=== PATIENT | male | born 1960 | race Caucasian/White ===

== ENCOUNTER 2017-06-01 06:47 | Day surgery (SDC) | payer BC ==
[~2017-06-01] VITALS: Ht 170.2 cm; Wt 77.5 kg
[2017-06-01 08:38] VITALS: Ht 170.2 cm; Wt 77.5 kg
[2017-06-01] MEDS ORDERED: PROPOFOL 20 ML ONE (08:50)
[2017-06-01 09:08] VITALS: BP 140/82; PULSE 64; RESP 20
[2017-06-01 09:48] VITALS: BP 113/75; PULSE 49; RESP 18
--- NOTE | 2017-06-05 06:11 | GILP ---
DATE OF PROCEDURE: PROCEDURE PERFORMED: Colonoscopy. SURGEON: Eugenio Latham MD. PREOPERATIVE DIAGNOSIS: Screening colonoscopy. POSTOPERATIVE DIAGNOSES: 1. Colonoscopy all the way to the cecum. 2. Diverticulosis of the colon. 3. Internal hemorrhoids. 4. No colon neoplasm was identified. INDICATION: Mr. Antwon Bartlett is a 55-year-old male patient who is scheduled for screening colonoscopy. The procedure and possible complications were well explained to the patient. The patient understood and consented to the procedure. Under influence of anesthesia, the colonoscope was carefully introduced in the rectum and under direct vision was advanced all the way to the cecum. FINDINGS: The patient had diverticulosis of the colon. He also had internal hemorrhoids. No colon neoplasm was identified. He tolerated the procedure very well. There was no complication from the procedure. At the end of procedure. He was awake, with stable vital signs. He was discharged home in the care of his family. IMPRESSION: 1. Diverticulosis of the colon. 2. Internal hemorrhoids. 3. No colon neoplasm was identified. PLAN: Next screening colonoscopy in 10 years. Dictated By: MD JAYSHREE Ellis/marco antonio/sonia /Document#: [id number] CC: Eugenio Latham MD;*EndCC*
== END 2017-06-01 13:31 | disposition home or self-care (01) ==
LOC: GIL 06:47
PROVIDERS: ATTEND Internal Medicine Gastroenterology
DX: Z12.11 Encounter for screening for malignant neoplasm of colon (principal); K57.90 Diverticulosis of intestine, part unspecified, without perforation or abscess without bleeding; K64.8 Other hemorrhoids
CPT/HCPCS: 45378; Z7610

== ENCOUNTER 2019-03-10 06:25 | Day surgery (SDC) | payer BC ==
[2019-03-10] VITALS (14 sets, daily range): BP systolic 70–134; BP diastolic 49–77; PULSE 48–74; RESP 12–23; Ht 167.6 cm; Wt 77.8 kg
[~2019-03-10] VITALS: Ht 167.6 cm; Wt 77.8 kg
[2019-03-10] MEDS ORDERED: SOD CHLORIDE 0.9% 1,000 ML IV SCH (07:00)
[2019-03-10] MEDS ORDERED: CEFAZOLIN 2 GM/50 ML (PMX) 50 ML IVPB ONE (07:00)
--- NOTE | 2019-03-10 08:11 | PREAC ---
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 not on B-Elio Reported Medications [None] No Conflict Check 06/01/17 Current Medications Sodium Chloride 1,000 ml @ 75 mls/hr [id number] IV ; Start 03/10/19 at 07:00; Stop 03/10/19 at 20:19 Meds reviewed: Yes Allergies Coded Allergies: No Known Drug Allergy (Verified Allergy, Mild, 06/01/17) Allergies Reviewed: Yes Labs/Studies Labs Reviewed: Reviewed by anesthesiologist test: N/A Pre-procedure Exam Airway: Adequate mouth opening, Adequate thyromental dist Mallampati: Mallampati II Teeth: Normal Lung: Normal Heart: Normal ASA Physical Status ASA physical status: 2 Emergency: None Planned Anesthetic General/MAC: ETT Nerve block: TAP (bilateral) Planned Pain Management Single shot nerve block, Parenteral pain med Pre-operative Attestations Prior to commencing anesthesia and surgery, the patient was re-evaluated, there was verification of: *The patient's identity *The results of appropriate recent lab work and preoperative vital signs *The above evaluation not changing prior to induction *Anesthetic plan, risk benefits, alternative and complications discussed with patient/family; questions answered; patient/family understands, accepts and wishes to proceed. MIRANDA RESTREPO MD Mar 10, 2019 08:11
[2019-03-10] MEDS ORDERED: ATOR10TA65 PO (08:12)
[2019-03-10] MEDS ORDERED: ROCURONIUM 50 MG INJ ONE (08:22)
[2019-03-10] MEDS ORDERED: FENTAnyl 50 MCG/ML VIAL ONE (08:22)
[2019-03-10] MEDS ORDERED: ROPIVACAINE 0.2% 20 ML VIAL ONE (08:22)
[2019-03-10] MEDS ORDERED: MIDAZOLAM 1 MG/ML 2 ML INJ ONE (08:22)
[2019-03-10] MEDS ORDERED: PROPOFOL 20 ML ONE (08:22)
[2019-03-10] MEDS ORDERED: HYDROmorphONE 1 MG/5 ML IV SYRINGE IV PRN ×3 (08:30)
[2019-03-10] MEDS ORDERED: EPHEDrine SULFATE 50 MG/5 ML SYG IV PRN (08:30)
[2019-03-10] MEDS ORDERED: OXYCODONE/ACETAMINOPHEN (5/325) TAB PO PRN (08:30)
[2019-03-10] MEDS ORDERED: hydrALAzine 20 MG INJ IV PRN (08:30)
[2019-03-10] MEDS ORDERED: FENTAnyl 50 MCG/ML VIAL IV PRN ×3 (08:30)
[2019-03-10] MEDS ORDERED: ONDANSETRON 4 MG INJ IV PRN (08:30)
[2019-03-10] MEDS ORDERED: MEPERIDINE 25 MG INJ IV PRN (08:30)
[2019-03-10] MEDS ORDERED: METOCLOPRAMIDE 10 MG INJ IV PRN (08:30)
[2019-03-10] MEDS ORDERED: LABETALOL HCL 20MG INJ IV PRN (08:30)
[2019-03-10] MEDS ORDERED: DIPHENHYDRAMINE 50 MG INJ IV PRN (08:30)
[2019-03-10] MEDS ORDERED: CEFAZOLIN 1 GM INJ ONE (09:10)
[2019-03-10] MEDS ORDERED: PHENYLephrine (100 MCG/ML) 10ML SYG ONE (09:22)
[2019-03-10] MEDS ORDERED: DEXAMETHASONE 4 MG/ML 5 ML INJ ONE (09:28)
[2019-03-10] MEDS ORDERED: METOCLOPRAMIDE 10 MG INJ ONE (09:28)
[2019-03-10] MEDS ORDERED: KETOROLAC 30 MG INJ ONE (09:28)
[2019-03-10] MEDS ORDERED: SUGAMMADEX SODIUM 200 MG/2 ML VIAL IV ONE (09:28)
[2019-03-10] MEDS ORDERED: ONDANSETRON 4 MG INJ ONE (09:28)
--- NOTE | 2019-03-10 09:46 | OPR ---
Date/Time of Note Date/Time of Note DATE: 03/10/19 TIME: 09:44 Operative Report Procedure Date: Mar 10, 2019 Preoperative Diagnosis symptomatic gallstones Postoperative Diagnosis same Operation/Procedure Performed laparoscopic cholecystectomy Surgeon see signature line Subsurface Augmentee Operator none Anesthesia Type: general Estimated Blood Loss: 0 - 10 ml's Transfusion none Specimen gallbladder Grafts/Implants none Complications none Pt Condition Post Procedure: stable Indications This is a 58-year-old male with some tender gallstones. He requires surgical excision of his gallbladder. Risks alternatives benefits and personally discussed the patient. Patient expressed understanding and consents to the operation. Procedure Description Patient is taken to the OR and prepped and draped in usual sterile fashion. Surgical time was performed. IV antibiotics were given. Infraumbilical transverse incision was made with a 15 blade. Dissection with cautery was carried onto the fascia. The fascia was grasped with Adi's and divided with curved Sinclair scissors. Miller trocar was introduced. Pneumoperitoneum was established. Midepigastric 12 mm optical trochars placed under direct visualization. Right upper quadrant upper flank 5 mm optical trochars were placed in direct position. Upon initial inspection there are some adhesions to gallbladder which were taken down bluntly. The gallbladder is grasped in the fu ndus and retracted and lateral cephalad direction. [place] graspers were used to dissect out the cystic duct and cystic artery. The critical view was established. The cystic duct is divided with 3 clips proximal to distal and the divisions performed laparoscopic scissors. Cystic artery was divided 3 clips proximally clipped distally divisions performed laparoscopic scissors. The gallbladder was taken of the gallbladder bed. Good hemostasis times. The gallbladder is retrieved Endo Catch bag. Ports removed under direct physician. 0 Vicryl [id number] stitches placed into the infraumbilical fascial incision. Skin is closed and skin shayy. A tap block was provided by the anesthesiologist. Dry dressings were applied. Alexis KUMAR Mar 10, 2019 09:46
--- NOTE | 2019-03-10 09:50 | PAC ---
Date/Time of Note Date/Time of Note DATE: 03/10/19 TIME: 09:49 Post-Anesthesia Notes Post-Anesthesia Note Last documented vital signs Vital Signs Date Temp Pulse Resp B/P (MAP) Pulse Ox O2 O2 Flow FiO2 Time Delivery Rate 03/10/19 98.3 56 16 121/63 100 Face Mask 8 L 09:46 (82) Activity: WNL Respiratory function: WNL Cardiovascular function: WNL Mental status: Baseline Pain reasonably controlled: Yes Hydration appropriate: Yes Nausea/Vomiting absent: Yes MIRANDA RESTREPO MD Mar 10, 2019 09:49
[2019-03-10] MEDS ORDERED: HYDROCODONE/APAP (5/325) TAB PO ONE (10:00)
[2019-03-10] MEDS ORDERED: KETOROLAC 30 MG INJ IV STA (12:11)
== END 2019-03-10 13:15 | disposition home or self-care (01) ==
LOC: SDS 06:25
PROVIDERS: ATTEND Surgery
DX: K80.20 Calculus of gallbladder without cholecystitis without obstruction (principal); I25.10 Atherosclerotic heart disease of native coronary artery without angina pectoris; E78.5 Hyperlipidemia, unspecified; Z98.61 Coronary angioplasty status
CPT/HCPCS: 47562; 88304; J0690; J1100; J1885; J2250; J2370; J2405; J2765; J2795; J3010; Z7610